=== PATIENT | male | born 1945 | race Caucasian/White ===

== ENCOUNTER 2018-05-02 12:31 | Inpatient (IN) | payer OTHER ==
[2018-05-02] VITALS (35 sets, daily range): BP systolic 84–137; BP diastolic 44–62
[~2018-05-02] VITALS: Ht 175.3 cm; Wt 62.4 kg
[~2018-05-02 12:31] MED LIST: ACET-929 PO; ASPI-492 PO; ATOR20TA50 PO; BECL0.07 IN; CILO100T PO; CLON0.1T PO; CLOP75TA41 PO; ENAL20TA70 PO; ESCI10TA53 PO; FENO48TA6 OR; FERR-20 PO; FUR40T PO; GLIM1TAB PO; LEV50T PO; LORA-622 PO; MET50T PO; METF-490 PO; POTA12PO2 PO
[2018-05-02] MEDS ORDERED: SODIUM CHLORIDE 0.9% 2,000 ML IV ONE (13:00)
[2018-05-02] MEDS ORDERED: SODIUM BICARBONATE 8.4 % INJ 50ML VIAL IV ONE ×3 (13:00→19:30)
[2018-05-02] MEDS ORDERED: NOREPINEPHRINE 8 MG/250ML KIT 250 ML IV ONE (13:07)
[2018-05-02] MEDS ORDERED: SODIUM BICARBONATE 8.4% INJ 50ML SYRINGE ONE ×2 (13:15→14:19)
[2018-05-02] MEDS: NOREPINEPHRINE 8 MG/250ML KIT 250 ML IV SCH (13:20)
[2018-05-02 13:24] LABS: Eosinophils # (auto) 0 uL; Eosinophils % (auto) 0.1 % (0.0-7.0); Hemoglobin 9.5 g/dL (13.5-17.5); White Blood Cell 21.3 10^3/uL (4.4-10.8)
[2018-05-02 13:26] LABS: Basophils # (auto) 0.1 uL; Basophils % (auto) 0.7 % (0.0-2.0); Hematocrit 30.7 % (41.0-53.0); Lymphocytes % (auto) 23.3 % (10.0-50.0); Mean Corpuscular Hemoglobin 31.4 pg (28.0-32.0); Mean Corpuscular Volume 101.2 fL (80.0-100.0); Monocytes % (auto) 4.6 % (0.0-12.0); Neutrophils # (auto) 15.2 uL; Neutrophils % (auto) 71.3 % (37.0-80.0); Platelet Count (auto) 360 10^3/uL (140-450); Red Blood Cells 3.03 10^6/uL (4.5-5.90)
[2018-05-02] MEDS ORDERED: ANGIOMAX 250 MG VIAL IV ONE (13:30)
[2018-05-02] MEDS ORDERED: MIDAZOLAM HCL 1MG/1ML-2 ML VIAL ONE (13:30)
[2018-05-02] MEDS ORDERED: SODIUM CHL 0.9% 0 ML ONE (13:30)
[2018-05-02 13:36] LABS: INR 1.05 (0.9-1.15); Partial Thromboplastin Time 35.8 sec (23.78-33.04); Prothrombin Time 11.2 sec (9.27-12.13)
[2018-05-02] MEDS ORDERED: MIDAZOLAM DRIP 50 mg/50mL 50 ML IV ONE (13:42)
[2018-05-02] MEDS: MIDAZOLAM DRIP 50 mg/50mL 50 ML IV SCH (13:43)
[2018-05-02 13:44] LABS: Albumin 1.9 g/dL (3.4-5.0); BUN/Creatinine Ratio 12.3; Bilirubin, Total 0.4 mg/dL (0.2-1.0); Calcium 8.9 mg/dL (8.5-10.1); Magnesium 3.9 mg/dL (1.6-2.6); Total Protein 6.7 g/dL (6.4-8.2)
[2018-05-02 13:51] LABS: Potassium 6.4 mmol/L (3.5-5.1)
[2018-05-02] MEDS ORDERED: CALCIUM CHLOR(10%) 100MG/ML 10ML SYRINGE IV ONE (13:59)
[2018-05-02] MEDS ORDERED: CALCIUM CHL 100MG/ML 1,000 MG in D5W 5% 100 ML IV ONE (14:00)
[2018-05-02] MEDS ORDERED: ATROPINE SULF 1 MG/10ml SYR ONE (14:03)
[2018-05-02] MEDS ORDERED: EPINEPHrine HCL 1 MG/10 ML SYRG ONE (14:03)
[2018-05-02 14:05] LABS: Lactic Acid w/Reflex 4.5 mmol/L (0.4-2.0)
[2018-05-02] MEDS ORDERED: IODIXANOL 320MG/ML 100ML BTL IV ONE (14:07)
[2018-05-02] MEDS ORDERED: SODIUM POLYSTYRENE SULF 15GM/60ML SUSP ONE (14:20)
[2018-05-02] MEDS ORDERED: SODIUM POLYSTYRENE SULF 15GM/60ML SUSP PO ONE (15:00)
[2018-05-02] MEDS: SODIUM BICARBONATE 50ML VIAL 50 ML in D5W/SOD CHL 0.45% 1,000 ML IV SCH (15:00)
[2018-05-02] MEDS ORDERED: LEVO-28 PO (16:25)
[2018-05-02] MEDS ORDERED: FLUT250M2 INH (16:25)
[2018-05-02] MEDS ORDERED: CALC667C PO (16:25)
[2018-05-02] MEDS ORDERED: FINA5TAB4 PO (16:25)
[2018-05-02] MEDS ORDERED: ERGO50003 PO (16:25)
[2018-05-02] MEDS ORDERED: CLON0.1T PO (16:25)
[2018-05-02] MEDS ORDERED: TAMS0.4C36 PO (16:25)
[2018-05-02] MEDS ORDERED: ALLO300T2 PO (16:25)
[2018-05-02] MEDS ORDERED: PRED1SUS3 OP (16:25)
[2018-05-02] MEDS ORDERED: NIF10C PO (16:25)
[2018-05-02] MEDS ORDERED: LINE1TAB7 PO (16:25)
[2018-05-02] MEDS ORDERED: ALBUTEROL SULF 2.5 MG/0.5ML(0.5%) NEB SOLN NEB PRN (18:30)
[2018-05-02] MEDS ORDERED: PROMETHAZINE HCL 25 MG/ML 1ML IV PRN (18:30)
[2018-05-02] MEDS ORDERED: NITROGLYCERIN 0.4 MG SL TAB SL PRN (18:30)
[2018-05-02] MEDS ORDERED: VANCOMYCIN PER PHARMACY 0 MG IV SCH (18:30)
[2018-05-02] MEDS ORDERED: PANTOPRAZOLE 40 MG/10 ML VIAL IV ONE (19:00)
[2018-05-02 19:10] LABS: Alcohol, Urine < 3.0 mg/dL (0-5); Amphetamine Screen, Urine NEGATIVE (NEGATIVE); Barbiturate Scree,Urine NEGATIVE (NEGATIVE); Cannabinoid Screen, Urine NEGATIVE (NEGATIVE); Cocaine Screen, Urine NEGATIVE (NEGATIVE); Opiate Scree,Urine NEGATIVE (NEGATIVE); Phencyclidine Screen, Urine NEGATIVE (NEGATIVE)
[2018-05-02 19:11] LABS: BUN/Creatinine Ratio 14.3; Calcium 7.8 mg/dL (8.5-10.1)
[2018-05-02 19:18] LABS: Benzodiazephine Screen, Urine POSITIVE (NEGATIVE)
[2018-05-02 19:20] LABS: Potassium 5.8 mmol/L (3.5-5.1)
[2018-05-02] MEDS ORDERED: DEXTROSE (50%) 50ML SYRG IV ONE (19:30)
[2018-05-02] MEDS ORDERED: ENOXAPARIN SOD 60 MG/0.6 ML SYRINGE SC ONE (19:30)
[2018-05-02] MEDS ORDERED: DEXTROSE (50%) 50ML SYRG IV PRN (19:30)
[2018-05-02] MEDS ORDERED: InsuLIN REG 1unit/0.01ml Soln (100units/ml) IV ONE (19:30)
[2018-05-02] MEDS ORDERED: PIPERACILLIN-TAZOB 2.25GM 50 ML IV ONE (19:45)
[2018-05-02] MEDS ORDERED: VANCOMYCIN 1GM/250ML 250 ML IV ONE (20:00)
[2018-05-02] MEDS: ACCU-CHEK COMFORT CURVE STRIP VI SCH (22:54)
[2018-05-02 23:29] LABS: BUN/Creatinine Ratio 14.5; Potassium 5.4 mmol/L (3.5-5.1)
[2018-05-03] VITALS (96 sets, daily range): BP systolic 66–146; BP diastolic 26–107
[2018-05-03] MEDS: IPRATROPIUM BROM 0.5 MG/2.5ML INH SOL NEB SCH ×3 (00:43→18:49)
[2018-05-03] MEDS: ALBUTEROL SULF 2.5 MG/0.5ML(0.5%) NEB SOLN NEB SCH ×3 (00:44→18:49)
[2018-05-03] MEDS: SODIUM BICARBONATE 50ML VIAL 50 ML in D5W/SOD CHL 0.45% 1,000 ML IV SCH ×3 (01:30→22:30)
[2018-05-03] MEDS: ACCU-CHEK COMFORT CURVE STRIP VI SCH ×6 (04:00→20:00)
[2018-05-03 04:19] LABS: Basophils # (auto) 0 uL; Basophils % (auto) 0.3 % (0.0-2.0); Eosinophils # (auto) 0 uL; Hematocrit 24.8 % (41.0-53.0); Hemoglobin 8.1 g/dL (13.5-17.5); Lymphocytes # (auto) 1.3 uL; Lymphocytes % (auto) 9.6 % (10.0-50.0); Mean Corpuscular Hemoglobin 31.3 pg (28.0-32.0); Mean Corpuscular Hgb Conc. 32.6 g/dL (32.0-36.0); Mean Corpuscular Volume 96.1 fL (80.0-100.0); Monocytes # (auto) 0.6 uL; Monocytes % (auto) 4.3 % (0.0-12.0); Neutrophils # (auto) 11.7 uL; Neutrophils % (auto) 85.8 % (37.0-80.0); Platelet Count (auto) 242 10^3/uL (140-450); Red Blood Cells 2.58 10^6/uL (4.5-5.90); Red Cell Distribution Width 13.6 % (11.8-14.3); White Blood Cell 13.6 10^3/uL (4.4-10.8)
[2018-05-03 04:26] LABS: Albumin 1.6 g/dL (3.4-5.0); BUN/Creatinine Ratio 14.5; Bilirubin, Total 0.3 mg/dL (0.2-1.0); Calcium 8.2 mg/dL (8.5-10.1); Total Protein 5.8 g/dL (6.4-8.2)
[2018-05-03] MEDS: MIDAZOLAM DRIP 50 mg/50mL 50 ML IV SCH (06:47)
[2018-05-03] MEDS: PIPERACILLIN-TAZOB 2.25GM 50 ML IV SCH ×2 (08:57→22:00)
[2018-05-03] MEDS: ENOXAPARIN SOD 60 MG/0.6 ML SYRINGE SC SCH (08:58)
[2018-05-03] MEDS: PANTOPRAZOLE 40 MG/10 ML VIAL IV SCH (08:58)
[2018-05-03] MEDS: ASPirin 81 mg TAB NG SCH (08:58)
[2018-05-03] MEDS: AZITHROMYCIN 500MG/ 250ML 250 ML IV SCH (08:58)
[2018-05-03] MEDS: FUROSEMIDE 40 MG/4 ML VIAL IV SCH (09:51)
[2018-05-03] MEDS ORDERED: SODIUM CHL 0.9% 1000 ML BAG XX ONE (10:00)
[2018-05-03] MEDS ORDERED: ENOXAPARIN SOD 30 MG/0.3 ML SYRINGE SC SCH (10:00)
[2018-05-03] MEDS ORDERED: IOHEXOL 350 MG/ML 100ML IJ ONE (11:06)
[2018-05-03] MEDS ORDERED: InsuLIN REG 1unit/0.01ml Soln (100units/ml) ONE (11:52)
[2018-05-03] MEDS ORDERED: CALCIUM GLUC 4.65 MEQ/10ML 10 ML IV ONE (12:06)
[2018-05-03] MEDS ORDERED: DEXTROSE 50% SYRINGE 50 ML IV ONE (12:06)
[2018-05-03] MEDS ORDERED: EPINEPHrine HCL 1 MG/10 ML SYRG IV ONE (12:37)
[2018-05-03] MEDS ORDERED: CALCIUM CHLOR(10%) 100MG/ML 10ML SYRINGE IV ONE (12:37)
[2018-05-03] MEDS ORDERED: SODIUM BICARBONATE 8.4% INJ 50ML SYRINGE IV ONE (12:37)
[2018-05-03] MEDS: NOREPINEPHRINE 8 MG/250ML KIT 250 ML IV SCH (13:15)
[2018-05-03 15:19] LABS: BUN/Creatinine Ratio 14.3; Calcium 8.7 mg/dL (8.5-10.1); Potassium 4.3 mmol/L (3.5-5.1)
[2018-05-03] MEDS ORDERED: VANCOMYCIN 1GM/250ML 250 ML IV ONE (20:30)
[2018-05-04] VITALS (103 sets, daily range): BP systolic 78–171; BP diastolic 30–110
[2018-05-04] MEDS: ACCU-CHEK COMFORT CURVE STRIP VI SCH ×6 (00:25→20:13)
[2018-05-04] MEDS: PIPERACILLIN-TAZOB 2.25GM 50 ML IV SCH ×2 (00:25→11:01)
[2018-05-04] MEDS: IPRATROPIUM BROM 0.5 MG/2.5ML INH SOL NEB SCH ×4 (00:27→18:57)
[2018-05-04] MEDS: ALBUTEROL SULF 2.5 MG/0.5ML(0.5%) NEB SOLN NEB SCH ×4 (00:27→18:57)
[2018-05-04 03:58] LABS: Basophils # (auto) 0 uL; Eosinophils # (auto) 0 uL; Hemoglobin 7.8 g/dL (13.5-17.5); Monocytes # (auto) 0.5 uL; Monocytes % (auto) 5.8 % (0.0-12.0); Platelet Count (auto) 250 10^3/uL (140-450); White Blood Cell 8.2 10^3/uL (4.4-10.8)
[2018-05-04 04:00] LABS: Basophils % (auto) 0.1 % (0.0-2.0); Eosinophils % (auto) 0.3 % (0.0-7.0); Hematocrit 24.1 % (41.0-53.0); Lymphocytes # (auto) 1.4 uL; Lymphocytes % (auto) 17.4 % (10.0-50.0); Mean Corpuscular Hemoglobin 31.6 pg (28.0-32.0); Mean Corpuscular Hgb Conc. 32.2 g/dL (32.0-36.0); Mean Corpuscular Volume 98.2 fL (80.0-100.0); Neutrophils # (auto) 6.3 uL; Neutrophils % (auto) 76.4 % (37.0-80.0); Red Blood Cells 2.45 10^6/uL (4.5-5.90); Red Cell Distribution Width 13.8 % (11.8-14.3)
[2018-05-04 05:12] LABS: BUN/Creatinine Ratio 15.3; Calcium 8.1 mg/dL (8.5-10.1); Potassium 4.3 mmol/L (3.5-5.1)
[2018-05-04] MEDS: MIDAZOLAM DRIP 50 mg/50mL 50 ML IV SCH ×2 (06:45→20:09)
[2018-05-04] MEDS: AZITHROMYCIN 500MG/ 250ML 250 ML IV SCH (08:00)
[2018-05-04] MEDS: ENOXAPARIN SOD 60 MG/0.6 ML SYRINGE SC SCH (10:00)
[2018-05-04] MEDS: ASPirin 81 mg TAB NG SCH (11:00)
[2018-05-04] MEDS: PANTOPRAZOLE 40 MG/10 ML VIAL IV SCH (11:01)
[2018-05-04] MEDS: FUROSEMIDE 40 MG/4 ML VIAL IV SCH (11:01)
[2018-05-04] MEDS: SODIUM BICARBONATE 50ML VIAL 50 ML in D5W/SOD CHL 0.45% 1,000 ML IV SCH ×2 (11:45→22:30)
[2018-05-04] MEDS: NOREPINEPHRINE 8 MG/250ML KIT 250 ML IV SCH (13:15)
[2018-05-05] VITALS (87 sets, daily range): BP systolic 57–148; BP diastolic 23–75
[2018-05-05] MEDS: IPRATROPIUM BROM 0.5 MG/2.5ML INH SOL NEB SCH ×3 (00:46→11:32)
[2018-05-05] MEDS: ALBUTEROL SULF 2.5 MG/0.5ML(0.5%) NEB SOLN NEB SCH ×3 (00:46→11:32)
[2018-05-05 04:02] LABS: Eosinophils # (auto) 0 uL; Eosinophils % (auto) 0.5 % (0.0-7.0); Hemoglobin 7.6 g/dL (13.5-17.5); Lymphocytes # (auto) 1.5 uL
[2018-05-05 04:06] LABS: Basophils # (auto) 0.1 uL; Basophils % (auto) 1.4 % (0.0-2.0); Hematocrit 23.1 % (41.0-53.0); Lymphocytes % (auto) 19.1 % (10.0-50.0); Mean Corpuscular Hgb Conc. 32.9 g/dL (32.0-36.0); Mean Corpuscular Volume 97.3 fL (80.0-100.0); Monocytes # (auto) 0.4 uL; Monocytes % (auto) 5.1 % (0.0-12.0); Neutrophils # (auto) 5.9 uL; Neutrophils % (auto) 73.9 % (37.0-80.0); Platelet Count (auto) 251 10^3/uL (140-450); Red Blood Cells 2.37 10^6/uL (4.5-5.90); Red Cell Distribution Width 13.9 % (11.8-14.3)
[2018-05-05] MEDS: ACCU-CHEK COMFORT CURVE STRIP VI SCH ×4 (04:11→12:01)
[2018-05-05 04:28] LABS: Albumin 1.5 g/dL (3.4-5.0); Calcium 8.1 mg/dL (8.5-10.1); Potassium 4.3 mmol/L (3.5-5.1)
[2018-05-05 04:38] LABS: BUN/Creatinine Ratio 14.8; Bilirubin, Total 0.3 mg/dL (0.2-1.0); Total Protein 5.6 g/dL (6.4-8.2)
[2018-05-05] MEDS: AZITHROMYCIN 500MG/ 250ML 250 ML IV SCH (08:11)
[2018-05-05] MEDS: FUROSEMIDE 40 MG/4 ML VIAL IV SCH (09:32)
[2018-05-05] MEDS: ENOXAPARIN SOD 60 MG/0.6 ML SYRINGE SC SCH (09:32)
[2018-05-05] MEDS: ASPirin 81 mg TAB NG SCH (09:32)
[2018-05-05] MEDS: PANTOPRAZOLE 40 MG/10 ML VIAL IV SCH (09:32)
[2018-05-05] MEDS: PIPERACILLIN-TAZOB 2.25GM 50 ML IV SCH (09:40)
[2018-05-05] MEDS: NOREPINEPHRINE 8 MG/250ML KIT 250 ML IV SCH (10:56)
[2018-05-05] MEDS ORDERED: fentaNYL Drip 2500mCg/250mlNS 250 ML IV SCH (12:20)
== END 2018-05-06 01:05 | disposition expired | DRG 871 ==
LOC: ER 12:31 → EDBD 12:31 → CATH 1 13:29 → ICU WEST 13:30
PROVIDERS: ADMIT Internal Medicine Cardiovascular Disease; ATTEND Internal Medicine
PROC: 5A12012 Performance of Cardiac Output, Single, Manual (ICD-10-PCS; principal; 2018-05-02)
PROC: 5A1945Z Respiratory Ventilation, 24-96 Consecutive Hours (ICD-10-PCS; 2018-05-02)
PROC: 0BH17EZ Insertion of Endotracheal Airway into Trachea, Via Natural or Artificial Opening (ICD-10-PCS; 2018-05-02)
PROC: 4A023N7 Measurement of Cardiac Sampling and Pressure, Left Heart, Percutaneous Approach (ICD-10-PCS; 2018-05-02)
PROC: B2181ZZ Fluoroscopy of Left Internal Mammary Bypass Graft using Low Osmolar Contrast (ICD-10-PCS; 2018-05-02)
PROC: B2111ZZ Fluoroscopy of Multiple Coronary Arteries using Low Osmolar Contrast (ICD-10-PCS; 2018-05-02)
PROC: B2131ZZ Fluoroscopy of Multiple Coronary Artery Bypass Grafts using Low Osmolar Contrast (ICD-10-PCS; 2018-05-02)
DX: A41.50 Gram-negative sepsis, unspecified (principal); I21.09 ST elevation (STEMI) myocardial infarction involving other coronary artery of anterior wall; E43 Unspecified severe protein-calorie malnutrition; J96.01 Acute respiratory failure with hypoxia; N18.6 End stage renal disease; J15.6 Pneumonia due to other Gram-negative bacteria; I13.2 Hypertensive heart and chronic kidney disease with heart failure and with stage 5 chronic kidney disease, or end stage renal disease; J44.0 Chronic obstructive pulmonary disease with (acute) lower respiratory infection; N17.9 Acute kidney failure, unspecified; R64 Cachexia; G93.1 Anoxic brain damage, not elsewhere classified; E87.1 Hypo-osmolality and hyponatremia; I46.9 Cardiac arrest, cause unspecified; E87.5 Hyperkalemia; E83.41 Hypermagnesemia; D63.8 Anemia in other chronic diseases classified elsewhere; E03.9 Hypothyroidism, unspecified; E11.21 Type 2 diabetes mellitus with diabetic nephropathy; E11.22 Type 2 diabetes mellitus with diabetic chronic kidney disease; F41.9 Anxiety disorder, unspecified; E78.5 Hyperlipidemia, unspecified; I25.10 Atherosclerotic heart disease of native coronary artery without angina pectoris; I46.8 Cardiac arrest due to other underlying condition; I50.9 Heart failure, unspecified; N40.0 Benign prostatic hyperplasia without lower urinary tract symptoms; Z66 Do not resuscitate; Z86.73 Personal history of transient ischemic attack (TIA), and cerebral infarction without residual deficits; Z87.891 Personal history of nicotine dependence; Z95.1 Presence of aortocoronary bypass graft; Z99.2 Dependence on renal dialysis; Z88.5 Allergy status to narcotic agent; Z68.20 Body mass index [BMI] 20.0-20.9, adult; Z82.5 Family history of asthma and other chronic lower respiratory diseases; Z82.69 Family history of other diseases of the musculoskeletal system and connective tissue
CPT/HCPCS: 36415; 36600; 70450; 71045; 80048; 80053; 80061; 80202; 80307; 82550; 82805; 82962; 83036; 83605; 83735; 83880; 84443; 84484; 85025; 85379; 85610; 85652; 85730; 86141; 86850; 86900; 86901; 86920; 87040; 87070; 87077; 87081; 87086; 87186; 87205; 92950; 93005; 93306; 93459; 93970; 94002; 94003; 94640; 99152; A6257; C9113; J1815; J2250; J2543; J7060; Q9967